=== PATIENT | female | born 1980 | race Caucasian/White ===

== ENCOUNTER 2016-07-22 07:50 | Emergency (ER) | payer MEDICARE, OTHER ==
[2016-07-22 08:47] LABS: BASOPHILS % 0.3 (0.0-1.5); EOSINOPHILS % 0.9 % (0.0-6.8); LYMPHOCYTES # 1.6 # k/uL (0.6-4.0); MEAN CORPUSCULAR HEMOGLOBIN 31.2 pg (28.0-34.0); MONOCYTES # 0.4 # k/uL (0.0-0.9); MONOCYTES % 4.5 % (0.0-11.0); NEUTROPHILS # 5.8 # k/uL (1.4-7.7)
[2016-07-22] MEDS ORDERED: 0.9 % SODIUM CHLORIDE 1,000 ML IV SCH (09:00)
[2016-07-22 09:29] LABS: eGFR (African) > 60; eGFR (Non-African) > 60
[2016-07-22 09:46] LABS: APPEARANCE,URINE Clear (CLEAR); COLOR,URINE Yellow (YELLOW); OCCULT BLOOD,URINE Negative (NEGATIVE); UROBILINOGEN URINE 0.2 Eu (0.2-1.0)
[2016-07-22 09:48] LABS: AMPHETAMINE NEGATIVE ng/mL (<1000); BARBITURATES NEGATIVE ng/mL (<300); CANNABINOIDS NEGATIVE ng/mL (<50); COCAINE NEGATIVE ng/mL (<150); METHAMPHETAMINE NEGATIVE ng/mL (<1000); METHYLENEDIOXYMETHAMPHETAMINE NEGATIVE ng/mL (<500)
--- NOTE | 2016-07-22 11:05 | ED Physician Documentation ---
Dizziness - HISTORIAN Historian: patient - HPI Stated Complaint: slurred speech, difficulty walking, visual problems Chief Complaint: Dizziness Additional Information: 0700 today pt had slurred speech, dizziness, difficulty walking, blurred vision. Never had similar symptoms. Resolved spontaneously. Reoccured x 1. Slurred speech residual on presentation to ER. Timing: sudden onset Duration: intermittent episodes Last known Well Date: 07/22/16 Last Known Well Time: 06:55 Context: sitting at home doing paperwork Severity: moderate Associated Symptoms: vestibular, sense of spinning, weakness, light headedness Decreased Ability to Stand/ Walk: weak, off balance Usually: walks w/o assistance Worsened By: nothing Further Comments: no - ROS CONST: no problems EYES/ENT: problems with vision (blurred vision thisd morning during symptoms) GI/: none LNMP: denies: MS/SKIN/LYMPH: other (weakness legs) NEURO/PSYCH: other (slurred speech) CVS/RESP: none - PAST HX Past History: CVA, diabetes Type 2, hyperlipidemia, other (aortic stenosis) Cardiac Disease: other (aortic stenosis) Surgeries/Procedures: other (aortic stenosis surgery) Immunizations: referred to PCP Allergies/Adverse Reactions: Allergies Allergy/AdvReac Type Severity Reaction Status Date / Time latex Allergy Verified 07/22/16 10:01 Home Medications: Ambulatory Orders Medication Instructions Recorded Metformin HCl [Glucophage] 500 mg PO BID 06/09/13 Metoprolol Succinate [Toprol XL] 50 mg PO DAILY 06/09/13 Simvastatin [Simvastatin] 20 mg PO DAILY 06/09/13 Warfarin Sodium [Warfarin Sodium] 5 mg PO DAILY 06/09/13 Canagliflozin [Invokana] 300 mg PO u2 06/03/15 Colchicine 0.6 mg PO av 06/03/15 Insulin Aspart [Novolog] 100 unit SQ 06/03/15 Insulin Glargine,Hum.rec.anlog 100 unit SQ 06/03/15 [Lantus Solostar] Levonorgestrel-Ethin Estradiol 1 each PO u2 06/03/15 [Marlissa-28 Tablet] Cephalexin [Keflex] 500 mg PO TID #30 capsule 11/25/15 diphenhydrAMINE HCL [Benadryl] 25 mg PO Q6 PRN #25 tablet 11/25/15 - SOCIAL HX Smoking History: non-smoker Alcohol Use: none Drug Use: none - FAMILY HX Family History: none - VITAL SIGNS Vital Signs: Vital Signs Temp Pulse Resp BP Pulse Ox 97.8 F 94 H 16 130/88 99 07/22/16 07:55 07/22/16 07:55 07/22/16 07:55 07/22/16 07:55 07/22/16 07:55 - REVIEWED ASSESSMENTS Nursing Assessment Reviewed: Yes Vitals Reviewed: Yes Progress - Results/Orders Results/Orders: cbc, cmp, pt/ptt/inr, d-dimer, ua, ucg, uds ordered - Progress Progress: Pt's slurred speech resolved spontaneously in er. Stable entire time in er. Critical Care Note - Critical Care Note Total Time (mins): 0 ED Results Lab/Radiology - Lab Results Lab Results: Lab Results 07/22/16 07/22/16 07/22/16 09:45 09:45 08:40 WBC RBC Hgb Hct MCV MCH MCHC RDW Plt Count Neut % (Auto) Lymph % (Auto) [place] % (Auto) Eos % (Auto) Baso % (Auto) Neut # Lymph # [place] # Eos # Baso # Reactive Lymphs % Reactive Lymphs # PT INR APTT D-Dimer 302 ng/mL ng/mL (6.0-682) Sodium Potassium Chloride Carbon Dioxide BUN Creatinine Est GFR ( Amer) Est GFR (Non-Af Amer) Glucose Calcium Total Bilirubin AST ALT Alkaline Phosphatase Troponin I < 0.03 ng/mL L ng/mL (0.03-0.06) Total Protein Albumin Urine Color Yellow (YELLOW) Urine Appearance Clear (CLEAR) Urine pH 6.0 (5.0 - 8.0) Ur Specific Norton <=1.005 L (1.010-1.030) Urine Protein Negative mg/dL mg/dL (NEGATIVE) Urine Ketones Negative mg/dL mg/dL (NEGATIVE) Urine Occult Blood Negative (NEGATIVE) Urine Nitrite Negative (NEGATIVE) Urine Bilirubin Negative (NEGATIVE) Urine Urobilinogen 0.2 Eu Eu (0.2-1.0) Ur Leukocyte Esterase Negative (NEGATIVE) Urine Glucose Negative mg/dL mg/dL (NEGATIVE) Opiates Screen Negative (2000 ng/mL) Oxycodone Screen Negative ng/mL ng/mL (<100) Methadone Screen Negative ng/mL ng/mL (<300) POC Urine Barbiturates Negative ng/mL ng/mL (<300) Amphetamines Screen Negative ng/mL ng/mL (<1000) POC Ur Methamphetamine Negative ng/mL ng/mL (<1000) MDMA Negative ng/mL ng/mL (<500) Benzodiazepines Screen Negative ng/mL ng/mL (<300) Cocaine Screen Negative ng/mL ng/mL (<150) Marijuana (THC) Screen Negative ng/mL ng/mL (<50) 07/22/16 07/22/16 07/22/16 08:40 08:40 08:40 WBC 8.00 K/ul K/ul (4.00-12.00) RBC 4.56 M/ul M/ul (3.90-5.20) Hgb 14.2 g/dL g/dL (12.0-16.0) Hct 43.3 % % (34.5-46.5) MCV 94.9 fl fl (80.0-100.0) MCH 31.2 pg pg (28.0-34.0) MCHC 32.9 g/dL g/dL (30.0-36.0) RDW 14.2 % % (11.3-14.3) Plt Count 331 K/mm3 K/mm3 (130-400) Neut % (Auto) 72.7 % % (39.0-79.0) Lymph % (Auto) 20.4 % % (16.0-50.0) [place] % (Auto) 4.5 % % (0.0-11.0) Eos % (Auto) 0.9 % % (0.0-6.8) Baso % (Auto) 0.3 (0.0-1.5) Neut # 5.8 # k/uL # k/uL (1.4-7.7) Lymph # 1.6 # k/uL # k/uL (0.6-4.0) [place] # 0.4 # k/uL # k/uL (0.0-0.9) Eos # 0.1 # k/uL # k/uL (0.0-0.6) Baso # 0.0 # k/uL # k/uL (0.0-0.5) Reactive Lymphs % 1.0 % % (0.0-5.0) Reactive Lymphs # 0.1 # k/uL # k/uL (0.0-0.8) PT 27.1 Seconds H Seconds (9.7-11.5) INR 2.5 H (0.9-1.1) APTT 36.0 Seconds H Seconds (24.5-32.8) D-Dimer Sodium 136 mmol/L mmol/L (136-145) Potassium 3.5 mmol/L mmol/L (3.5-5.0) Chloride 105 mmol/L mmol/L (98-110) Carbon Dioxide 26 mmol/L mmol/L (20-32) BUN Pending Creatinine 0.6 mg/dL mg/dL (0.4-1.5) Est GFR ( Amer) > 60 (60 - ) Est GFR (Non-Af Amer) > 60 (60 - ) Glucose 149 mg/dL H mg/dL (70-99) Calcium 9.9 mg/dL mg/dL (8.5-10.5) Total Bilirubin 0.3 mg/dL mg/dL (0.2-1.2) AST 23 U/L U/L (0-41) ALT 20 U/L U/L (0-45) Alkaline Phosphatase 92 U/L U/L (46-116) Troponin I Total Protein 7.7 g/dL g/dL (6.0-8.5) Albumin 4.9 g/dL g/dL (3.0-5.5) Urine Color Urine Appearance Urine pH Ur Specific Norton Urine Protein Urine Ketones Urine Occult Blood Urine Nitrite Urine Bilirubin Urine Urobilinogen Ur Leukocyte Esterase Urine Glucose Opiates Screen Oxycodone Screen Methadone Screen POC Urine Barbiturates Amphetamines Screen POC Ur Methamphetamine MDMA Benzodiazepines Screen Cocaine Screen Marijuana (THC) Screen - Radiology Radiology Impressions: ct head shows old left frontal and old right occipital infarcts - Orders Orders: ED Orders Category Date Time Status Place Saline Lock/IV Now Care 07/22/16 08:40 Active CHEST 1 VIEW [RAD] Routine Exams 07/22/[address] BRAIN W/O CONTRAST Stat Exams 07/22/16 Ordered CBC/PLATELET/DIFF Routine Lab 07/22/16 08:40 Completed CMP Routine Lab 07/22/16 08:40 Results D DIMER Routine Lab 07/22/16 08:40 Completed GRP A STREP SCREEN Routine Lab 07/22/16 Ordered INFLUENZA A&B Routine Lab 07/22/16 Uncollected PT-INR Routine Lab 07/22/16 08:40 Completed PTT Routine Lab 07/22/16 08:40 Completed TROPONIN I (cTnI) Routine Lab 07/22/16 08:40 Completed URINALYSIS Routine Lab 07/22/16 09:45 Completed URINE HCG Routine Lab 07/22/16 Uncollected Urine drug screen [DRUG SCREEN URINE MEDICAL ONLY] Lab 07/22/16 09:45 Completed Routine 0.9 % Sodium Chloride [Normal Saline] 1,000 ml Med 07/22/16 09:00 Ordered IV .Q1H Chem Sticks Med 07/22/16 12:00 Ordered 1 each CHEMQID EKG WITH COMPARISON Routine Ther 07/22/16 Ordered Dizziness Physical Exam - Physical Exam General Appearance: no distress EENT: eye inspection normal, ENT inspection normal, pharynx normal, no signs of dehydration, ESPERANZA, no nystagmus, TM's nml, other (slurred speech on presentation , resolved sp[ontatneously) Neck: normal inspection, thyroid normal, supple Respiratory: no respiratory distress, breath sounds nml, chest non-tender CVS: reg rate & rhythm, heart sounds normal, equal pulses Abdomen: soft, no organomegaly, normal bowel sounds, no abdominal bruit, no distension, non-tender Skin: warm/dry, normal color Neuro: nml orientation, nml speech, nml cognition, mood/affect nml Extremities: non-tender, normal range of motion, no evidence of injury, no edema Discharge Clincal Impression: TIA (transient ischemic attack) Qualifiers: Transient cerebral ischemia type: unspecified Qualified Code(s): G45.9 - Transient cerebral ischemic attack, unspecified Home Medications: Ambulatory Orders Metformin HCl [Glucophage] 500 mg PO BID 06/09/13 Metoprolol Succinate [Toprol XL] 50 mg PO DAILY 06/09/13 Simvastatin [Simvastatin] 20 mg PO DAILY 06/09/13 Warfarin Sodium [Warfarin Sodium] 5 mg PO DAILY 06/09/13 Canagliflozin [Invokana] 300 mg PO u2 06/03/15 Colchicine 0.6 mg PO av 06/03/15 Insulin Aspart [Novolog] 100 unit SQ 06/03/15 Insulin Glargine,Hum.rec.anlog [Lantus Solostar] 100 unit SQ 06/03/15 Levonorgestrel-Ethin Estradiol [Marlissa-28 Tablet] 1 each PO u2 06/03/15 Cephalexin [Keflex] 500 mg PO TID #30 capsule 11/25/15 diphenhydrAMINE HCL [Benadryl] 25 mg PO Q6 PRN #25 tablet 11/25/15 Comments: Case discussed with bed placement coordinator for Dr. Santos. States Dr. Santos accepts pt. Transferred in stable condition via ground EMS to [facility]. Condition: Stable Disposition: XFER [facility] Decision to Admit: NO Decision Time: 11:30
[2016-07-22] MEDS ORDERED: 0.9 % SODIUM CHLORIDE 1,000 ML IV ONE (11:39)
[2016-07-22 12:26] VITALS: BP 128/86
--- NOTE | 2016-07-22 16:05 | Diagnostic Imaging Report ---
[facility] [id number] [facility] [address] [place], [place]. [address] Report Submission Date: Jul 22, 2016 8:56:00 AM AUTOMATIC THREAD WINDER Patient Study Name: CORTES ADAMS Date: Jul 22, 2016 8:37:17 AM AUTOMATIC THREAD WINDER Modality Type: CT\SR Gender: F Description: CT BRAIN W/O CONTRAST : 82 Institution: [facility] Physician LAVON KRAUSE - Head CT without contrast CLINICAL HISTORY: Slurred speech. Dizziness. TECHNIQUE: CT examination of the brain is performed in contiguous axial slices without the use of contrast. Sagittal and coronal reconstructions are performed by the technologist. FINDINGS: The 4th ventricle lies in a normal midline position. There is an old left frontal infarct with encephalomalacia. There is prominence of the ventricles including the 3rd and 4th ventricles without significant prominence of the sulci suggesting hydrocephalus. There is an old right occipital infarct adjacent to the right occipital horn. Visualized paranasal sinuses and mastoid air cells are clear. IMPRESSION: Old right occipital and left frontal infarcts. Distended ventricles consistent with hydrocephalus. Electronically signed on Jul 22, 2016 8:56:00 AM AUTOMATIC THREAD WINDER by: Sina DUMONT
--- NOTE | 2016-07-22 16:06 | Diagnostic Imaging Report ---
LAVON KRAUSE [facility] [id number] [facility] [address] [address] Report Submission Date: Jul 22, 2016 8:56:48 AM SAND TECHNICIAN Patient Study Name: CORTES ADAMS Date: Jul 22, 2016 8:46:39 AM SAND TECHNICIAN Modality Type: CR Gender: F Description: CHEST : 82 Institution: [facility] Physician: LAVON KRAUSE Chest -one view CLINICAL HISTORY: Dizziness. FINDINGS: Examination of the chest in single portable AP view 07/22/2016 0846 hr with comparison to examination 06/09/2013 demonstrates postoperative changes with multiple sternotomy wires. Cardiac silhouette is prominent. The lungs are clear. Monitor leads superimpose the chest. IMPRESSION: Postoperative chest. Left ventricular prominence. No active disease. Electronically signed on Jul 22, 2016 8:56:48 AM SAND TECHNICIAN by: Sina DUMONT
== END 2016-07-22 11:50 | disposition short-term general hospital (02) ==
LOC: ED 07:50
DX: G45.9 Transient cerebral ischemic attack, unspecified (principal)
CPT/HCPCS: 70450; 71010; 80053; 81002; 81025; 84484; 85025; 85379; 85610; 85730; 93005; G0481; J7030; 80377; 99283; S1016

== ENCOUNTER 2016-09-15 16:06 | Outpatient (CLI) | payer MEDICARE, OTHER | END 2016-09-15 16:07 | LOC: LAB 16:06 | PROVIDERS: ATTEND Internal Medicine Cardiovascular Disease | DX: Z51.81 Encounter for therapeutic drug level monitoring (principal); Z79.01 Long term (current) use of anticoagulants; Z95.2 Presence of prosthetic heart valve | CPT/HCPCS: 36415; 85610 ==

== ENCOUNTER 2017-07-07 10:07 | Outpatient (CLI) | payer MEDICARE, OTHER | END 2017-07-07 10:10 | LOC: LAB 10:07 | PROVIDERS: ATTEND Internal Medicine Cardiovascular Disease | DX: Z79.01 Long term (current) use of anticoagulants (principal) | CPT/HCPCS: 36415; 85610 ==

== ENCOUNTER 2017-08-17 12:06 | Outpatient (CLI) | payer MEDICARE, OTHER | END 2017-08-17 12:09 | LOC: LAB 12:06 | PROVIDERS: ATTEND Internal Medicine Cardiovascular Disease | DX: Z79.01 Long term (current) use of anticoagulants (principal) | CPT/HCPCS: 36415; 85610 ==

== ENCOUNTER 2017-09-13 10:57 | Outpatient (CLI) | payer MEDICARE, OTHER | END 2017-09-13 11:00 | LOC: LAB 10:57 | PROVIDERS: ATTEND Internal Medicine Cardiovascular Disease | DX: Z79.01 Long term (current) use of anticoagulants (principal) | CPT/HCPCS: 36415; 85610 ==

== ENCOUNTER 2018-01-04 09:42 | Outpatient (CLI) | payer MEDICARE, OTHER | END 2018-01-04 09:43 | LOC: POD 09:42 | PROVIDERS: ATTEND Podiatrist Public Medicine | DX: L60.3 Nail dystrophy (principal); E11.9 Type 2 diabetes mellitus without complications; B35.1 Tinea unguium; M79.672 Pain in left foot; M79.671 Pain in right foot; L84 Corns and callosities | CPT/HCPCS: 11721; G0463 ==